=== PATIENT | female | born 1995 | race Caucasian/White ===

== ENCOUNTER 2022-06-13 10:04 | Outpatient (CLI) | payer SELFPAY ==
[~2022-06-13] VITALS: Ht 167.6 cm; Wt 109.1 kg
--- NOTE | 2022-06-13 10:15 | NUR ---
Pt arrived on unit ambulatory and with concerns for bleeding since last night. Pt is from [place] and reports she is G4L1 23.4wks due 10/06. Pt reports she is high risk due to RA/Lupus and was taking Leflunomide at the beginning of the . Pt reports some "spotting" on pantyliner last night with some cramping and spotting again this morning but no cramping. EFM and toco monitors were started. Vital signs WNL. Dr. Kessler notified. See physician notification for details.
[2022-06-13] MEDS ORDERED: PREDNISONE 5MG5 MG PO (10:29)
--- NOTE | 2022-06-13 10:50 | NUR ---
Plan of care for labs and ultrasound reviewed with pt. Request for records also filled out and sent to Dr. Brewster's office in [place].
--- NOTE | 2022-06-13 11:09 | NUR ---
Pt off EFM for bedside US.
[2022-06-13 11:10] VITALS: BP 121/70; PULSE 85; TEMP 97.7
[2022-06-13 11:16] LABS: BASO % 0.3 % (0.0-2.0); EOS # 0.1 K/mm3 (0.0-0.7); EOS % 0.6 % (0.0-4.0); GRAN # 8.4 K/mm3 (1.4-6.5); GRAN % 80.9 % (42.2-75.2); HEMOGLOBIN 11.4 g/dl (12.5-16.0); LYMPH # 1.3 K/mm3 (1.2-3.4); LYMPH % 12.2 % (20.0-51.0); MEAN CELL VOLUME 95 fl (80.0-100.0); MEAN CORPUSCULAR HEMOGLOBIN 32 pg (27-31); MEAN CORPUSCULAR HGB CONC 34 g/dl (33.0-37.0); MEAN PLATELET VOLUME 9.8 fl (7.4-10.4); MONO # 0.6 K/mm3 (0.1-0.6); MONO % 5.7 % (1.7-9.3); PLATELET COUNT 200 K/mm3 (130-400); RED BLOOD COUNT 3.59 M/mm3 (4.10-5.30); REDCELL DISTRIBUTION WIDTH-CV 13.6 % (11.5-14.5)
[2022-06-13 12:20] VITALS: BP 116/57; PULSE 59
--- NOTE | 2022-06-13 12:20 | NUR ---
Difficult tracing FHR due to maternal habitus and age. This RN at the bedside with frequent attempts to adjust EFM. Audible and palpable movement.
[2022-06-13 13:15] VITALS: BP 99/54; PULSE 68
--- NOTE | 2022-06-13 13:15 | NUR ---
Pt off EFM to the bathroom.
--- NOTE | 2022-06-13 14:20 | NUR ---
Difficult tracing FHR due to maternal habitus and age. This RN at the bedside for frequent attempts to adjust EFM. Audible and palpable movement.
--- NOTE | 2022-06-13 15:15 | NUR ---
Difficult tracing FHR due to maternal habitus and age. This RN at the bedside with frequent attempts to adjust EFM. Audible and palpable movement.
--- NOTE | 2022-06-13 16:30 | NUR ---
Plan of care for SVE and ultrasound report reviewed with pt. SVE done by this RN closed/thick/high and no bleeding noted on external exam or exam glove. Plan for discharge home reviewed with pt. Pt verbalized an understanding and agreed with the plan.
[2022-06-13 17:04] VITALS: BP 132/73; PULSE 90
== END 2022-06-13 17:10 | disposition home or self-care (01) ==
LOC: LDRO 10:04
PROVIDERS: Obstetrics & Gynecology
DX: O46.92 Antepartum hemorrhage, unspecified, second trimester (principal); Z3A.23 23 weeks gestation of pregnancy